=== PATIENT | male | born 1995 | race Caucasian/White ===

== ENCOUNTER 2024-10-03 02:13 | Emergency (ER) | payer SELFPAY ==
[~2024-10-03] VITALS: Ht 167.6 cm; Wt 64.0 kg
[2024-10-03] MEDS: MORPHINE SULFATE 4 MG/ML INJ (FOR IV/IM USE) IV ONE (02:43)
[2024-10-03] MEDS: ONDANSETRON HCL 4MG/2ML INJ IV ONE (02:44)
[2024-10-03] MEDS: SODIUM CHLORIDE 0.9% 1,000 ML IV ONE (02:44)
[2024-10-03 03:07] LABS: CHLORIDE 108 mEq/L (98-107); POTASSIUM 3.4 mEq/L (3.5-5.1); SODIUM 140 mEq/L (136-145)
[2024-10-03 03:08] LABS: CALCIUM 9.1 mg/dL (8.7-10.4); CARBON DIOXIDE 24 mEq/L (21-32)
[2024-10-03 03:09] LABS: BASOPHILS % 0.7 % (0.0-2.0); EOSINOPHILS % 0.7 % (0.0-5.0); HEMATOCRIT. 41.5 % (42.0-52.0); HEMOGLOBIN. 13.9 g/dL (14.0-18.0); LYMPHOCYTES % 15.4 % (20.0-50.0); MEAN CORPUSCULAR HEMOGLOBIN 29.9 pg (28.0-32.0); MEAN CORPUSCULAR HGB CONC 33.5 g/dL (31.0-37.0); MEAN CORPUSCULAR VOLUME 89.2 fL (80.0-94.0); MEAN PLATELET VOLUME 9.8 fl (7.4-10.4); MONOCYTES % 6.7 % (2.0-8.0); NEUTROPHILS % 76.5 % (40.0-76.0); PLATELET 224 x1000/uL (130-400); RED BLOOD CELL COUNT 4.65 mill/uL (4.7-6.1); RED CELL DISTRIBUTION WIDTH 13.2 % (11.6-14.6); WHITE BLOOD COUNT 10.6 x1000/uL (4.5-11.0)
[2024-10-03 03:13] LABS: CREATININE 0.8 mg/dL (0.6-1.3); GLUCOSE 88 mg/dL (70-105); UREA NITROGEN BLOOD 15 mg/dL (9-23)
[2024-10-03] MEDS ORDERED: NAPR-420 MT (04:39)
[2024-10-03] MEDS ORDERED: AMOX1TAB16 MT (04:39)
[2024-10-03] MEDS: HYDROCODONE/ACETAMINOPHEN 5/325MG TABLET PO ONE (04:50)
[2024-10-03] MEDS: AMOXICILLIN/POTASSIUM CLAVULANATE 875/125MG TAB PO ONE (04:50)
[2024-10-03] MEDS ORDERED: HYDR-4001 MT (05:16)
== END 2024-10-03 05:27 | disposition home or self-care (01) ==
LOC: ER 02:13
DX: S81.831A Puncture wound without foreign body, right lower leg, initial encounter (principal); W34.00XA Accidental discharge from unspecified firearms or gun, initial encounter; Y93.01 Activity, walking, marching and hiking; Y92.89 Other specified places as the place of occurrence of the external cause; Y99.8 Other external cause status
CPT/HCPCS: 80048; 85025; 36415; 73590; 73706; 96374; 96375; 99285; J2405; J2270; J7030; Z7610

== ENCOUNTER 2025-04-27 22:33 | Emergency (ER) | payer OTHER ==
[~2025-04-27] VITALS: Ht 175.3 cm; Wt 74.5 kg
[~2025-04-27 22:33] MED LIST: AMOX1TAB16 MT; HYDR-4001 MT; NAPR-420 MT
[2025-04-27] MEDS: MORPHINE SULFATE 4 MG/ML INJ (FOR IV/IM USE) IM ONE (23:07)
[2025-04-27 23:28] LABS: BASOPHILS % 0.6 % (0.0-2.0); EOSINOPHILS % 1.3 % (0.0-5.0); HEMATOCRIT. 44.7 % (42.0-52.0); HEMOGLOBIN. 14.9 g/dL (14.0-18.0); LYMPHOCYTES % 27.6 % (20.0-50.0); MEAN CORPUSCULAR HEMOGLOBIN 29.2 pg (28.0-32.0); MEAN CORPUSCULAR HGB CONC 33.2 g/dL (31.0-37.0); MEAN PLATELET VOLUME 9.7 fl (7.4-10.4); MONOCYTES % 5.7 % (2.0-8.0); NEUTROPHILS % 64.8 % (40.0-76.0); PLATELET 253 x1000/uL (130-400); RED BLOOD CELL COUNT 5.08 mill/uL (4.7-6.1); RED CELL DISTRIBUTION WIDTH 12.9 % (11.6-14.6); WHITE BLOOD COUNT 10.5 x1000/uL (4.5-11.0)
[2025-04-27 23:33] LABS: CHLORIDE 106 mEq/L (98-107); POTASSIUM 3.6 mEq/L (3.5-5.1); SODIUM 140 mEq/L (136-145)
[2025-04-27 23:34] LABS: CARBON DIOXIDE 27 mEq/L (21-32)
[2025-04-27 23:35] LABS: CALCIUM 9.3 mg/dL (8.7-10.4)
[2025-04-27 23:39] LABS: GLUCOSE 120 mg/dL (70-105); UREA NITROGEN BLOOD 17 mg/dL (9-23)
[2025-04-28] MEDS: ONDANSETRON 4MG ODT PO ONE (00:22)
[2025-04-28] MEDS: PROPOFOL 200MG/20ML VIAL IV ONE ×2 (01:01→01:03)
[2025-04-28] MEDS: KETAMINE HCL 50 MG/ML 10ML IV ONE (01:02)
[2025-04-28 01:22] VITALS: O2SAT 99
[2025-04-28] MEDS ORDERED: IBUP-2029 MT (01:31)
[2025-04-28 01:45] VITALS: BP 132/88; PULSE 74; RESP 13; TEMP 37.2; O2SAT 99
== END 2025-04-28 02:04 | disposition home or self-care (01) ==
LOC: ER 22:33
DX: S43.014A Anterior dislocation of right humerus, initial encounter (principal); Z79.899 Other long term (current) drug therapy; X58.XXXA Exposure to other specified factors, initial encounter; Y93.89 Activity, other specified; Y92.89 Other specified places as the place of occurrence of the external cause; Y99.8 Other external cause status
CPT/HCPCS: 99285; 23650; 80048; 85025; 36415; 73030 ×2; 96372; 99152; J2270; Q0162; J3490; J2704; A4565